=== PATIENT | female | born 1980 | race Caucasian/White ===

== ENCOUNTER 2017-05-02 15:51 | Emergency (ER) | payer BC ==
[~2017-05-02] VITALS: Ht 180.3 cm; Wt 60.9 kg
[~2017-05-02 15:51] MED LIST: ASPIRIN325 MG PO; CLINDAMYCIN HC300 MG PO; Ecotrin PO; FEROSUL325 MG PO; IMITREX25 MG PO; NAPROSYN500 MG PO; PROTONIX40 MG PO; REGLAN10 MG PO; Tylenol Regular Stre PO; ULTRAM50 MG PO
[2017-05-02 16:34] LABS: ADD MIUA? NO; BILIRUBIN NEGATIVE; BLOOD NEGATIVE; COLOR STRAW ((YELLOW)); GLUCOSE (STRIP) NEGATIVE; KETONES NEGATIVE; LEUKOCYTES NEGATIVE; NITRITE NEGATIVE; PROTEIN (STRIP) NEGATIVE; SPECIFIC GRAVITY 1.004 (1.000-1.030); UCUL ADDED? NO; UROBILINOGEN 0.2 MG/DL (0.2-1.0)
[2017-05-02 16:38] LABS: HEMATOCRIT 41.7 % (36.0-46.0); MCHC 33.3 G/DL (30.0-36.0); MCV 95.9 FL (83-99); MEAN PLAT.VOLUME 9.4 uM^3 (9.5-12.4); PLATELET COUNT 265 K/uL (156-360); RBC DIS.WIDTH-CV 13.2 % (11.8-14.6); RBC DIS.WIDTH-SD 47.1 % (39-53); RED BLOOD COUNT 4.35 M/uL (3.80-5.20); WHITE BLOOD COUNT 8.7 K/uL (4.1-10.2)
[2017-05-02 16:42] LABS: CHLORIDE 109 mEq/L (99-109); SODIUM 138 mEq/L (136-147)
[2017-05-02 16:44] LABS: GLUCOSE 97 mg/dL (70-99)
[2017-05-02 16:46] LABS: ANION GAP 8 MEQ/L (2-14); TOTAL BILIRUBIN 0.3 mg/dL (0.0-1.0)
[2017-05-02 16:48] LABS: ALKALINE PHOSPHATASE 69 IU/L (3-129); GFR ESTIMATE (CALCULATED) > 59 mL/min/
[2017-05-02 16:49] LABS: UREA NITROGEN (BUN) 11 mg/dL (9-23)
[2017-05-02 16:51] LABS: LIPASE 17 U/L (1.0-51.0)
[2017-05-02 16:57] LABS: QUANTITATIVE HCG < 4.0 MIU/ML
[2017-05-02] MEDS ORDERED: ZOFRAN4 MG PO (17:05)
[2017-05-02 17:18] VITALS: BP 103/70
== END 2017-05-02 17:36 | disposition home or self-care (01) ==
LOC: EME 15:51
PROVIDERS: Physician Assistant
DX: R11.2 Nausea with vomiting, unspecified (principal); J45.909 Unspecified asthma, uncomplicated; F17.200 Nicotine dependence, unspecified, uncomplicated; Z86.73 Personal history of transient ischemic attack (TIA), and cerebral infarction without residual deficits; Z98.51 Tubal ligation status; Z79.82 Long term (current) use of aspirin; Z88.5 Allergy status to narcotic agent
CPT/HCPCS: 80053; 81003; 83690; 84702; 85027; 99281; 99283